=== PATIENT | female | born 1950 | race Two or more races ===

== ENCOUNTER 2018-11-12 20:19 | Emergency (ER) | payer BC, MEDICAID ==
[~2018-11-12] VITALS: Ht 154.9 cm; Wt 61.2 kg
--- NOTE | 2018-11-12 20:25 | NUR ---
Dr. Krishnan at bedside for MSE.
[2018-11-12] MEDS ORDERED: ACETAMINOPHEN 325 MG TABLET PO ONE (20:30)
[2018-11-12] MEDS ORDERED: LISI1TAB9 PO (20:36)
--- NOTE | 2018-11-12 20:36 | NUR ---
Xray at bedside.
[2018-11-12] MEDS ORDERED: ACETAMINOPHEN 325 MG TABLET ONE (20:37)
--- NOTE | 2018-11-12 21:25 | NUR ---
Patient discharged to home in stable conditon. Written and verbal after care instructions given. Patient verbalizes understanding of instructions. Pt ambulated out of ER with steady gait, no acute signs of distress, VSS, all belongings taken.
[2018-11-12 21:26] VITALS: BP 164/75
== END 2018-11-12 22:01 | disposition home or self-care (01) ==
LOC: ER 20:19
DX: R07.89 Other chest pain (principal); R10.12 Left upper quadrant pain; I10 Essential (primary) hypertension; E78.5 Hyperlipidemia, unspecified; Z90.49 Acquired absence of other specified parts of digestive tract; Z79.899 Other long term (current) drug therapy
CPT/HCPCS: 71101; A4663